=== PATIENT | male | born 1970 | race Caucasian/White ===

== ENCOUNTER 2018-03-25 07:01 | Inpatient (IN) | payer OTHER ==
[~2018-03-25] VITALS: Ht 188 cm; Wt 130.4 kg
[~2018-03-25 07:01] MED LIST: BACTRIM,SEPT1 TABLET PO; BUSPAR15 MG PO; TRAZODONE HCL50 MG PO
[2018-03-25 07:45] LABS: HEMATOCRIT 41.1 % (38.0-50.0); HEMOGLOBIN 14.1 G/DL (12.5-16.6); MCH 30.9 PG (29.0-34.0); MCHC 34.3 G/DL (30.0-36.0); MCV 89.9 FL (86-99); PLATELET COUNT 269 K/uL (156-360); RBC DIS.WIDTH-CV 12.8 % (11.8-14.6); RBC DIS.WIDTH-SD 42.2 % (39-53); RED BLOOD COUNT 4.57 M/uL (4.00-5.50); WHITE BLOOD COUNT 12.8 K/uL (4.1-10.2)
[2018-03-25 07:57] LABS: ALBUMIN 3.8 g/dL (3.2-4.8)
[2018-03-25 07:58] LABS: CHLORIDE 103 mEq/L (99-109); POTASSIUM 3.3 mEq/L (3.7-5.4); SODIUM 139 mEq/L (136-147)
[2018-03-25 08:00] LABS: GLUCOSE 139 mg/dL (70-99); TOTAL PROTEIN 6.9 g/dL (6.4-8.3)
[2018-03-25 08:02] LABS: TOTAL BILIRUBIN 2.2 mg/dL (0.0-1.0)
[2018-03-25 08:03] LABS: ALKALINE PHOSPHATASE 113 IU/L (3-129)
[2018-03-25 08:04] LABS: GFR ESTIMATE (CALCULATED) > 59 mL/min/ (58.99-99999)
[2018-03-25 08:05] LABS: AST (GOT) 76 IU/L (2-34); UREA NITROGEN (BUN) 21 mg/dL (9-23)
[2018-03-25 08:06] LABS: ALT (GPT) 76 IU/L (3-49)
[2018-03-25 08:07] LABS: LIPASE 10 U/L (1.0-51.0)
[2018-03-25 08:26] LABS: ANISOCYTOSIS NONE SEEN; BAND NEUTROPHILS 26.1 % (0-8.0); EOSINOPHIL ABS CT 0; METAMYELOCYTES 0.9 %; MONOCYTES 5.2 % (0-9.0); PLAT.SUFFICIENCY ADEQUATE; SEG.NEUTROPHILS 67.8 % (46.0-76.0)
[2018-03-25 10:16] LABS: APPEARANCE CLEAR ((CLEAR)); BILIRUBIN NEGATIVE; BLOOD NEGATIVE; COLOR AMBER ((YELLOW)); GLUCOSE (STRIP) NEGATIVE; KETONES NEGATIVE; LEUKOCYTES LARGE; NITRITE NEGATIVE; PROTEIN (STRIP) 30
[2018-03-25 10:18] LABS: SPECIFIC GRAVITY > 1.060 (1.000-1.030)
[2018-03-25 10:23] LABS: BACTERIA RARE /HPF; EPITHELIAL CELLS RARE /HPF; MUCUS TRACE /LPF; UCUL ADDED? YES; WHITE BLOOD CELLS 30-40 /HPF (0-5)
[2018-03-25 13:08] VITALS: BP 126/80
[2018-03-25 15:26] VITALS: BP 124/56
[2018-03-25 22:59] VITALS: BP 121/63
[2018-03-26 06:10] LABS: ALBUMIN 3.2 G/DL (3.2-4.8); ALKALINE PHOSPHATASE 104 IU/L (3-129); ALT (GPT) 57 IU/L (3-49); AST (GOT) 43 IU/L (2-34); CHLORIDE 105 MEQ/L (99-109); DIRECT BILIRUBIN 0.6 mg/dL (0.0-0.3); GFR ESTIMATE (CALCULATED) > 59 mL/min/ (58.99-99999); GLUCOSE 164 mg/dL (70-99); POTASSIUM 3.5 MEQ/L (3.7-5.4); SODIUM 138 MEQ/L (136-147); TOTAL BILIRUBIN 1.4 MG/DL (0.0-1.0); TOTAL PROTEIN 5.4 G/DL (6.4-8.3); UREA NITROGEN (BUN) 18 mg/dL (9-23)
[2018-03-26 07:14] VITALS: BP 128/76
[2018-03-26 08:24] LABS: HEMATOCRIT 42.4 % (38.0-50.0); HEMOGLOBIN 14.2 G/DL (12.5-16.6); MCH 30.5 PG (29.0-34.0); MCHC 33.5 G/DL (30.0-36.0); PLATELET COUNT 261 K/uL (156-360); RBC DIS.WIDTH-CV 13.2 % (11.8-14.6); RBC DIS.WIDTH-SD 44.4 % (39-53); RED BLOOD COUNT 4.66 M/uL (4.00-5.50); WHITE BLOOD COUNT 19.1 K/uL (4.1-10.2)
[2018-03-26 15:00] LABS: CREATINE KINASE 153 IU/L (1-294)
[2018-03-26 15:23] VITALS: BP 123/58
[2018-03-27 00:19] VITALS: BP 151/73
[2018-03-27 06:05] LABS: HEMATOCRIT 38.4 % (38.0-50.0); HEMOGLOBIN 13.2 G/DL (12.5-16.6); MCH 30.8 PG (29.0-34.0); MCHC 34.4 G/DL (30.0-36.0); MCV 89.7 FL (86-99); PLATELET COUNT 272 K/uL (156-360); RBC DIS.WIDTH-CV 13.2 % (11.8-14.6); RBC DIS.WIDTH-SD 43.3 % (39-53); RED BLOOD COUNT 4.28 M/uL (4.00-5.50); WHITE BLOOD COUNT 18.6 K/uL (4.1-10.2)
[2018-03-27 06:31] LABS: PTT 24.2 SEC (25-37)
[2018-03-27 06:36] LABS: ALBUMIN 2.9 G/DL (3.2-4.8); ALKALINE PHOSPHATASE 105 IU/L (3-129); ALT (GPT) 99 IU/L (3-49); DIRECT BILIRUBIN 0.2 mg/dL (0.0-0.3); TOTAL PROTEIN 5.4 G/DL (6.4-8.3)
[2018-03-27 06:42] LABS: AST (GOT) 72 IU/L (2-34); TOTAL BILIRUBIN 0.6 MG/DL (0.0-1.0)
[2018-03-27 06:49] LABS: ABS NEUTROPHIL COUNT 17.8; ANISOCYTOSIS NONE SEEN; ATYPICAL LYMPHOCYTE 0.9 %; BAND NEUTROPHILS 24.4 % (0-8.0); EOSINOPHIL ABS CT 0; LYMPHOCYTES 1.7 % (15.0-45.0); MONOCYTES 1.7 % (0-9.0); PLAT.SUFFICIENCY DECREASED; SEG.NEUTROPHILS 71.3 % (46.0-76.0)
[2018-03-27 06:58] VITALS: BP 151/77
[2018-03-27 15:24] VITALS: BP 141/74
[2018-03-27 22:37] VITALS: BP 132/85
[2018-03-28 06:22] LABS: ALBUMIN 3.1 G/DL (3.2-4.8); ALKALINE PHOSPHATASE 113 IU/L (3-129); ALT (GPT) 84 IU/L (3-49); AST (GOT) 43 IU/L (2-34); DIRECT BILIRUBIN 0.1 mg/dL (0.0-0.3); TOTAL BILIRUBIN 0.5 MG/DL (0.0-1.0); TOTAL PROTEIN 5.6 G/DL (6.4-8.3)
[2018-03-28 07:10] VITALS: BP 158/83
[2018-03-28 07:43] LABS: FERRITIN 751 NG/ML (22-322)
[2018-03-28] MEDS ORDERED: KEFLEX500 MG PO (09:15)
[2018-03-28] MEDS ORDERED: PREDNISONE10 MG PO (09:18)
[2018-03-28 11:13] LABS: HEPATITIS B SURFACE ANTIGEN Nonreactive
[2018-03-28 11:14] LABS: HEPATITIS B SURFACE ANTIBODY Nonreactive; HEPATITIS C ANTIBODY Nonreactive
[2018-03-29 20:23] LABS: ANTI-SMOOTH MUSCLE (Actin)+ <20 U (<20)
== END 2018-03-28 12:58 | disposition home or self-care (01) | DRG 603 ==
LOC: EME 07:01 → EDOF 11:40 → 5EAST 11:40 → ENRESERV 11:41 → 5EAST 13:04
PROVIDERS: Emergency Medicine; Hospitalist; Internal Medicine Gastroenterology; Internal Medicine Infectious Disease
DX: L03.113 Cellulitis of right upper limb (principal); L02.511 Cutaneous abscess of right hand; B95.61 Methicillin susceptible Staphylococcus aureus infection as the cause of diseases classified elsewhere; K76.0 Fatty (change of) liver, not elsewhere classified; F17.200 Nicotine dependence, unspecified, uncomplicated; E66.9 Obesity, unspecified; Z68.36 Body mass index [BMI] 36.0-36.9, adult; R74.0 Nonspecific elevation of levels of transaminase and lactic acid dehydrogenase [LDH]; R94.5 Abnormal results of liver function studies
CPT/HCPCS: 71046; 73130; 74177; 76705; 80048; 80053; 80076; 81003; 82390; 82550; 82728; 83516 90; 83605; 83690; 85025; 85027; 85610; 85730; 86038; 86256 90; 86706; 86803; 87040; 87070; 87075; 87077; 87086; 87147; 87186; 87205; 87340; 87449; 93005; 94640; 94799; 99281; 99285; J0690; J0696; J1644; J2405; J2920; J3370; J7030; J7050; S0032